=== PATIENT | female | born 1930 ===

== ENCOUNTER 2017-04-27 06:43 | Inpatient (IN) | payer OTHER, MEDICARE ==
[~2017-04-27] VITALS: Ht 152.4 cm; Wt 45.8 kg
[2017-04-27 06:51] VITALS: BP 136/63; PULSE 86; RESP 16; TEMP 98.2; O2SAT 98
[2017-04-27] MEDS ORDERED: CYPR4TAB PO (07:06)
[2017-04-27] MEDS ORDERED: METF500T PO (07:06)
[2017-04-27] MEDS ORDERED: ASPI81CH6 CHEW (07:12)
[2017-04-27] MEDS ORDERED: ALBU0.63 NEB (07:12)
[2017-04-27] MEDS ORDERED: LEVO.075 PO (07:12)
[2017-04-27] MEDS ORDERED: CENTCHW4 CHEW (07:12)
[2017-04-27] MEDS ORDERED: AMLO10TA2 PO (07:12)
[2017-04-27] MEDS ORDERED: CALC250T PO (07:12)
--- NOTE | 2017-04-27 07:27 | PD ---
HPI Chief Complaint: Abdominal Pain Time Seen by Provider: 07:06 Travel History International Travel<30 days: No Contact w/Intl Traveler<30days: No Traveled to known affect area: No History of Present Illness HPI This patient was sent to [facility] from the [facility] where she was evaluated with labs and CT abdomen and pelvis. She was sent here for ERCP. Patient was accepted by Drs. Espinal and Abner. Apparently the [facility] GI physician does not do ERCP according to the paperwork. So she was transferred here. She was found to have elevation of, bile duct with a density in the common bile duct suspicious for choledocholithiasis. Patient at this time is not having abdominal pain. She did have a temp of 101 but was influenza positive. She received Levaquin. This point her symptoms are mild. No alleviating factors. No exacerbating factors. Duration 2 days. PFSH Past Medical History ?: Not Social History Alcohol Use: No Tobacco Use: No Substance Use: No Allergies-Medications (Allergen,Severity, Reaction): Coded Allergies: codeine (Verified Allergy, Severe, Anaphylaxis, 04/27/17) morphine (Verified Allergy, Severe, Anaphylaxis, 04/27/17) Penicillins (Verified Allergy, Intermediate, Hives, 04/27/17) Reported Meds & Prescriptions Reported Meds & Active Scripts Active Reported Synthroid (Levothyroxine Sodium) 75 Mcg Tab 75 Mcg PO DAILY Amlodipine (Amlodipine Besylate) 10 Mg Tab 10 Mg PO DAILY Centrum (Multiple Vitamins W/ Minerals) 1 Chew 1 Tab CHEW DAILY Aspirin Low Dose (Aspirin) 81 Mg Chew 81 Mg CHEW DAILY Calcium Citrate 250 Mg Calcium Tab 250 Mg PO DAILY Albuterol Neb (Albuterol Sulfate) 0.63 Mg/3 Ml Neb 0.63 Mg NEB TID NEB PRN Metformin (Metformin HCl) 500 Mg Tab 500 Mg PO DAILY With a meal Cyproheptadine (Cyproheptadine HCl) 4 Mg Tab 4 Mg PO TID Review of Systems General / Constitutional: Positive: Fever Eyes: No: Visual changes HENT: No: Headaches Cardiovascular: No: Chest Pain or Discomfort Respiratory: No: Shortness of Breath Gastrointestinal: Positive: Abdominal Pain Genitourinary: No: Dysuria Musculoskeletal: No: Pain Skin: No Rash Neurologic: No: Weakness Psychiatric: No: Depression Endocrine: No: Polydipsia Hematologic/Lymphatic: No: Easy Bruising Physical Exam Narrative GENERAL: Pleasant elderly well-developed patient in no apparent distress. SKIN: Focused skin assessment reveals no rash and nodules. Skin is Warm and dry. HEAD: Atraumatic. Normocephalic. EYES: Pupils equal and round. Possibly a hint of scleral icterus. No injection or drainage. ENT: No nasal bleeding or discharge. Mucous membranes pink and moist. NECK: Trachea midline. No JVD. CARDIOVASCULAR: Regular rate and rhythm. No murmur appreciated. RESPIRATORY: No accessory muscle use. Clear to auscultation. Breath sounds equal bilaterally. GASTROINTESTINAL: Abdomen soft, non-tender, nondistended. Hepatic and splenic margins not palpable. MUSCULOSKELETAL: No obvious deformities. No clubbing. No cyanosis. No edema. NEUROLOGICAL: Awake and alert. No obvious cranial nerve deficits. Motor grossly within normal limits. Normal speech. PSYCHIATRIC: Appropriate mood and affect; insight and judgment reasonable . Data Data Last Documented VS Vital Signs Date Time Temp Pulse Resp B/P (MAP) Pulse Ox O2 Delivery O2 Flow Rate FiO2 04/27/17 06:51 98.2 86 16 136/63 (87) 98 MDM Medical Decision Making Medical Screen Exam Complete: Yes Emergency Medical Condition: Yes Medical Record Reviewed: Yes Differential Diagnosis Choledocholithiasis, cholecystitis, biliary colic Narrative Course I have reviewed the patient's electronic medical record. Reviewed the report Fish workup including lab studies and CT abdomen and pelvis. At this time patient is a soft benign nontender abdomen. She is not having pain. Vital signs are normal I placed a call to the hospitalist to discuss and we'll get her admitted Diagnosis Primary Impression: Choledocholithiasis Additional Impression: Influenza Admitting Information Admitting Physician Requests: Edmundo Mishra MD Apr 27, 2017 07:27
[2017-04-27] MEDS ORDERED: NALOXONE HCL 0.4 MG/ML AMP IV PUSH PRN (08:00)
[2017-04-27] MEDS ORDERED: ONDANSETRON HCL 4 MG/2 ML VIAL IVP PRN (08:00)
[2017-04-27] MEDS ORDERED: LACTULOSE SYRUP 20 GM/30 ML CUP PO PRN (08:00)
[2017-04-27] MEDS ORDERED: SENNOSIDES 8.6 MG TAB PO PRN (08:00)
[2017-04-27] MEDS ORDERED: BISACODYL 10 MG SUPP RECTAL PRN (08:00)
[2017-04-27] MEDS ORDERED: SODIUM CHLORIDE 0.9% FLUSH 10 ML FLUSH IV FLUSH PRN (08:00)
[2017-04-27] MEDS ORDERED: MAGNESIUM HYDROXIDE SUSP 30 ML CUP PO PRN (08:00)
[2017-04-27] MEDS: SODIUM CHLOR 0.9% 1000 ML INJ 1,000 ML IV SCH ×2 (08:58→21:46)
[2017-04-27] MEDS: SODIUM CHLORIDE 0.9% FLUSH 10 ML FLUSH IV FLUSH SCH ×2 (08:58→21:00)
--- NOTE | 2017-04-27 09:52 | PD.CONS ---
HPI History of Present Illness This is a 87 year old female reportedly sent from her [facility] to [facility]. SHe was then transferred to [facility] after imaging finding of density in CBD suspicious for choledocholithiasis, to have ERCP. SHe says she was sent to hospital b/c she was feeling sick, she was "sleeping too much." SHe admitted some epigastric pain in the last 2 days but none at this time. Denies n/v, diarrhea. Says she had EGD and Colonoscopy with DRGupta 6 months ago and both were normal. SHe says she had her gallbladder removed some years ago. Pt is limited historian. (Bina Williamson) PFSH Past Medical History noncontributory Past Surgical History cholecystectomy per pt (Bina Williamson) Coded Allergies: codeine (Verified Allergy, Severe, Anaphylaxis, 04/27/17) morphine (Verified Allergy, Severe, Anaphylaxis, 04/27/17) Penicillins (Verified Allergy, Intermediate, Hives, 04/27/17) Family History noncontributory Social History no etoh (Bina Williamson) Review of Systems Constitutional: COMPLAINS OF: Fever Ears, nose, mouth, throat: COMPLAINS OF: Hearing loss Gastrointestinal: DENIES: Abdominal pain, Diarrhea, Nausea, Vomiting Integumentary: DENIES: Jaundice otherwise noncontributory (Bina Williamson) GI Exam Vitals I&O Vital Signs Date Time Temp Pulse Resp B/P (MAP) Pulse Ox O2 Delivery O2 Flow Rate FiO2 04/27/17 06:51 98.2 86 16 136/63 (87) 98 Physical Examination HEENT: PERRL; normocephalic; atraumatic; no jaundice. [place] CHEST: CTA CARDIAC: RRR ABDOMEN: Soft, nondistended, nontender; no hepatosplenomegaly; bowel sounds are present in all four quadrants. EXTREMITIES: No clubbing, cyanosis, or edema. SKIN: Normal; no rash; no jaundice. FINISHER MAP AND CHART: lethargic (Bina Williamson) Assessment and Plan Plan ASSESSMENT 87 yo lady transferred from [facility] with imaging showing density CBD suspicious for choledocholithiasis. hx limited, pt had vague sx of feeling fatigued and sick, had abd pain but not painful now. labs are pending. plan for ERCP PLAN - ERCP - obtain consent - keep NPO - await labs - further recs to follow pt seen by myself and DR Chew and this note is written on her behalf (Bina Williamson) Plan Patient was seen and examined, agree with above Notes, patient has common bile duct suspicious for choledocholithiasis, elevated liver function test, found to have flu a, after discussion with the anesthesiologist Dr. Shields and with the patient we feel that waiting for another 24 hours before the ERCP is good idea to give her more Tamiflu which will bring her viral load as well as the flu down and we'll help her avoid respiratory distress, patient agree with the plan since she is not having any abdominal pain and no GI symptom at this point except mild elevation of the liver function tests will plan on doing that tomorrow thank you (Mauricio Chew MD) Bina Williamson Apr 27, 2017 09:52 Mauricio Chew MD Apr 27, 2017 16:47
[2017-04-27 11:16] VITALS: BP 117/59; PULSE 69; RESP 20; O2SAT 100
--- NOTE | 2017-04-27 11:16 | HHI.HP ---
HPI Service [facility] Primary Care Physician Unknown Admission Diagnosis choledocholithiasis,influenza Diagnoses: Travel History International Travel<30 Days: No Contact w/Intl Traveler <30 Da: No Traveled to Known Affected Are: No History of Present Illness Pt is a pleasant 87 yr old female w past medical history of asthma, hypertension, heart murmur, diabetes with a history of thyroidectomy although she doesn't know why she had it presented to [facility] with fevers and chills and was diagnosed with influenza A. In addition she was found to have elevated LFTs with an AST of 115 ALT of 57 and a lipase of 102. Patient had a CT of the abdomen which showed "dilated common bile duct measuring 1.3 cm in size. Increased density within the midportion of the common bile duct measuring 2.00.9 cm in size which may be a gallstone or sludge ball". Patient was transferred here to our emergency room for further evaluation by GI cosmetic sales consultant who accepted the patient. Patient denies any abdominal pain, nausea or vomiting. She tells me, the reason she went to [facility] was because of her fevers and chills. She was brought in by her nephew. She denies any sick contacts however she has been around "people". She has been coughing for more than a week. She also complains of some body aches. However, her fevers started yesterday. Otherwise, patient has no other complaints. Chest x-ray report also reviewed from [facility] which showed interstitial prominence which may represent pneumonitis or CHF or edema. Patient denies any prior history of CHF. She denies any lower extremity edema. She denies any active shortness of breath. She tells me she has good bladder and bowel movement function. Last BM was 2 days ago. She does not feel constipated. Review of Systems Except as stated in HPI: all other systems reviewed are Neg Past Family Social History Past Medical History asthma, hypertension, heart murmur, diabetes with a history of thyroidectomy although reason for thyroidectomy unknown to pt. Past Surgical History cholecystectomy per pt appendectomy and thyroidectomy Reported Medications Reported Meds & Active Scripts Active Reported Synthroid (Levothyroxine Sodium) 75 Mcg Tab 75 Mcg PO DAILY Amlodipine (Amlodipine Besylate) 10 Mg Tab 10 Mg PO DAILY Centrum (Multiple Vitamins W/ Minerals) 1 Chew 1 Tab CHEW DAILY Aspirin Low Dose (Aspirin) 81 Mg Chew 81 Mg CHEW DAILY Calcium Citrate 250 Mg Calcium Tab 250 Mg PO DAILY Albuterol Neb (Albuterol Sulfate) 0.63 Mg/3 Ml Neb 0.63 Mg NEB TID NEB PRN Metformin (Metformin HCl) 500 Mg Tab 500 Mg PO DAILY With a meal Cyproheptadine (Cyproheptadine HCl) 4 Mg Tab 4 Mg PO TID Allergies: Coded Allergies: codeine (Verified Allergy, Severe, Anaphylaxis, 04/27/17) morphine (Verified Allergy, Severe, Anaphylaxis, 04/27/17) Penicillins (Verified Allergy, Intermediate, Hives, 04/27/17) Family History mother had DM but of old age father of old age but medical hx unknown to pt Social History denies any smoking, alcohol or illegal drug use Physical Exam Vital Signs Vital Signs Date Time Temp Pulse Resp B/P (MAP) Pulse Ox O2 Delivery O2 Flow Rate FiO2 04/27/17 06:51 98.2 86 16 136/63 (87 98 Physical Exam GENERAL: elderly female, wearing mask, does have a dry cough, pleasant SKIN: No rashes, cool and dry HEAD: Atraumatic. Normocephalic. No temporal or scalp tenderness. EYES: Pupils equal round and reactive. Extraocular motions intact. ENT: Nose without drainage. Airway patent. NECK: Trachea midline. CARDIOVASCULAR: Regular rate and rhythm with very soft JUN RESPIRATORY: Clear to auscultation. Breath sounds equal bilaterally. No wheezes but faint crackles at base GASTROINTESTINAL: Abdomen soft, somewhat distended but non tender w no guarding or rebound, well healed mid line incision noted. no hpipps's sign MUSCULOSKELETAL: Extremities without edema. No calf tenderness. Negative Homans sign bilaterally. NEUROLOGICAL: Awake and alert. Motor and sensory grossly within normal limits. Five out of 5 muscle strength in all muscle groups. Normal speech. Imaging CT of the abdomen report (from [facility]) showed "dilated common bile duct measuring 1.3 cm in size. Increased density within the midportion of the common bile duct measuring 2.00.9 cm in size which may be a gallstone or sludge ball" Chest x-ray report also reviewed from [facility] which showed interstitial prominence which may represent pneumonitis or CHF or edema. Caprini VTE Risk Assessment Caprini VTE Risk Assessment: Mod/High Risk (score >= 2) Caprini Risk Assessment Model Point Value = 1 Point Value = 2 Point Value = 3 Point Value = 5 Age 41-60 Minor surgery BMI > 25 kg/m2 Swollen legs Varicose veins or History of unexplained or recurrent spontaneous Oral contraceptives or hormone replacement Sepsis (< 1 month) Serious lung disease, including pneumonia (< 1 month) Abnormal pulmonary function Acute myocardial infarction Congestive heart failure (< 1 month) History of inflammatory bowel disease Medical patient at bed rest Age 61-74 Arthroscopic surgery Major open surgery (> 45 min) Laparoscopic surgery (> 45 min) Malignancy Confined to bed (> 72 hours) Immobilizing plaster cast Central venous access Age >= 75 History of VTE Family history of VTE Factor V Leiden Prothrombin [id number] Lupus anticoagulant Anticardiolipin antibodies Elevated serum homocysteine Heparin-induced thrombocytopenia Other congenital or acquired thrombophilia Stroke (< 1 month) Elective arthroplasty Hip, pelvis, or leg fracture Acute spinal cord injury (< 1 month) Prophylaxis Regimen Total Risk Factor Score Risk Level Prophylaxis Regimen 0-1 Low Early ambulation 2 Moderate Order ONE of the following: *Sequential Compression Device (SCD) *Heparin 5000 units SQ BID 3-4 Higher Order ONE of the following medications: *Heparin 5000 units SQ TID *Enoxaparin/Lovenox 40 mg SQ daily (WT < 150 kg, CrCl > 30 mL/min) *Enoxaparin/Lovenox 30 mg SQ daily (WT < 150 kg, CrCl > 10-29 mL/min) *Enoxaparin/Lovenox 30 mg SQ BID (WT < 150 kg, CrCl > 30 mL/min) AND/OR *Sequential Compression Device (SCD) 5 or more Highest Order ONE of the following medications: *Heparin 5000 units SQ TID (Preferred with Epidurals) *Enoxaparin/Lovenox 40 mg SQ daily (WT < 150 kg, CrCl > 30 mL/min) *Enoxaparin/Lovenox 30 mg SQ daily (WT < 150 kg, CrCl > 10-29 mL/min) *Enoxaparin/Lovenox 30 mg SQ BID (WT < 150 kg, CrCl > 30 mL/min) AND *Sequential Compression Device (SCD) Assessment and Plan Assessment and Plan Mildly Elevated LFT's/Choledocholithiasis: GI accepted the transfer from [facility]. Make NPO for possible ERCP. Consult to GI in place. Monitor LFT's. IVFs NS @75 ml/hr. Mild leukocytosis: pt is influenza A positive. Will start her on tamiflu as fevers started yesterday and pt's symptoms worsened which prompted her to go to [facility]. Repeat chest x-ray in AM. Monitor CBC. WBC from her [facility] was 12.4. Mild anemia: Hemoglobin 10.6 hematocrit 30.7. Monitor HTN: stable. resume amlodipine and added vasotec prn DM: resume metformin. Monitor Cr levels. At [facility], creatinine was 0.79. will need heart healthy/ADA diet once diet resumed. Hypothyroidism: s/p thyroidectomy. resume synthroid. DVT proph: SCD. Pt may undergo procedure per GI, hold chemical DVT proph for now and resume post procedure. Code Status full Discussed Condition With patient and ER physician Emilee Whipple MD Apr 27, 2017 11:16
[2017-04-27] MEDS: DOCUSATE SODIUM 50 MG/SENNA 8.6 MG TAB PO SCH ×2 (11:18→21:00)
[2017-04-27] MEDS ORDERED: ACETAMINOPHEN 325 MG TAB PO PRN (11:30)
[2017-04-27] MEDS ORDERED: ENALAPRILAT 1.25 MG/ML VIAL IV PUSH PRN (11:30)
[2017-04-27] MEDS ORDERED: RESP: ALBUTEROL 2.5 MG/IPRATROPIUM 0.5 MG NEB (PRN) NEB (11:45)
[2017-04-27] MEDS ORDERED: BENZONATATE 100 MG CAP PO PRN (11:45)
--- NOTE | 2017-04-27 12:04 | RADRPT ---
EXAM DATE/TIME: 04/27/2017 11:52 [facility] COMPARISON: No previous studies available for comparison. INDICATIONS : Short of breath with cough and wheezing. MEDICAL HISTORY : None. SURGICAL HISTORY : None. ENCOUNTER: Initial ACUITY: 2 days PAIN SCORE: 0/10 LOCATION: Bilateral chest FINDINGS: The lungs are clear without infiltrate, nodule, or mass. There is no appreciable pleural effusion fo r technique. Heart and mediastinum are unremarkable. There are degenerative changes in the thoracic spine with mild osteopenia. Calcifications are seen in the right shoulder due to chronic tendinitis. IMPRESSION: No acute cardiopulmonary disease. Clem Rogers MD on April 27, 2017 at 12:00 Board Certified Radiologist. This report was verified electronically.
[2017-04-27] MEDS: OSELTAMIVIR PHOSPHATE 75 MG CAP PO SCH ×2 (14:19→21:45)
[2017-04-27 17:00] VITALS: BP 119/59; PULSE 73; RESP 18; TEMP 97.8; O2SAT 98
[2017-04-27 20:00] VITALS: PULSE 80
[2017-04-27 21:18] VITALS: BP 149/65; PULSE 83; RESP 18; TEMP 97.9; O2SAT 97
[2017-04-27 23:17] VITALS: BP 124/61; PULSE 81; RESP 18; TEMP 97.2; O2SAT 93
[2017-04-28] VITALS (9 sets, daily range): BP systolic 106–135; BP diastolic 55–64; PULSE 67–80; RESP 16–20; TEMP 97.5–98.2; O2SAT 93–97
[2017-04-28] MEDS: LEVOTHYROXINE SODIUM 75 MCG TAB PO SCH (05:28)
[2017-04-28 07:44] LABS: AUTOMATED NEUTROPHIL # 4.9 TH/MM3 (1.8-7.7); BASOPHIL # 0.1 TH/MM3 (0-0.2); BASOPHIL % 0.7 % (0.0-2.0); EOSINOPHIL # 0.2 TH/MM3 (0-0.4); EOSINOPHIL % 2.4 % (0.0-4.0); HEMATOCRIT 27.2 % (35.0-46.0); HEMOGLOBIN 9.3 GM/DL (11.6-15.3); LYMPH % 26.5 % (9.0-44.0); LYMPHOCYTE # 2.1 TH/MM3 (1.0-4.8); MEAN CELL VOLUME 90.9 FL (80.0-100.0); MEAN CORPUSCULAR HGB CONC 34.2 % (32.0-36.0); MEAN PLATELET VOLUME 8.8 FL (7.0-11.0); MONO % 8.1 % (0.0-8.0); MONOCYTE # 0.6 TH/MM3 (0-0.9); NEUT % 62.3 % (16.0-70.0); PLATELET COUNT 338 TH/MM3 (150-450); RED BLOOD COUNT 2.99 MIL/MM3 (4.00-5.30); RED CELL DISTRIBUTION WIDTH 18.3 % (11.6-17.2); WHITE BLOOD COUNT 7.9 TH/MM3 (4.0-11.0)
--- NOTE | 2017-04-28 08:11 | HHI.PR ---
Subjective Remarks This is a pleasant 87 y/o Female with Asthma, Hypertension, Dm II, Thyroidectomy , Who presented to [facility] with fevers and chills and was diagnosed with influenza A. In addition she was found to have elevated LFTs with an AST of 115 ALT of 57 and a lipase of 102. Patient had a CT of the abdomen which showed "dilated common bile duct measuring 1.3 cm in size. Increased density within the midportion of the common bile duct measuring 2.00.9 cm in size which may be a gallstone or sludge ball". Patient was transferred here to our emergency room for further evaluation by GI conveyor tender who accepted the patient. She was brought in by her nephew. Chest x-ray report also reviewed from [facility] which showed interstitial prominence which may represent pneumonitis or CHF or edema. 04/28: Seen in her bedroom early in am, awaiting for ERCP, she came back to her bedroom status post ERCP, found Dilated common bile duct with multiple filling defects multiple stones were removed with significant amount of sludge, Cholangiogram negative for filing defect, recommended Nothing by mouth until tomorrow morning if doing okay may advance diet as tolerated. Liver function in am tomorrow. at this time no nausea, vomit or diarrhea. Objective Vital Signs Date Time Temp Pulse Resp B/P (MAP) Pulse Ox O2 Delivery O2 Flow Rate FiO2 04/28/17 05:14 98.1 79 18 131/64 (86) 93 04/28/17 04:00 73 04/28/17 00:00 80 04/27/17 23:17 97.2 81 18 124/61 (82) 93 04/27/17 21:18 97.9 83 18 149/65 (93) 97 04/27/17 20:00 80 04/27/17 20:00 Room Air 04/27/17 17:00 97.8 73 18 119/59 (79) 98 04/27/17 15:46 04/27/17 15:43 98.0 72 17 133/60 (84) 98 04/27/17 15:43 98.0 72 17 133/60 (84) 98 Room Air 04/27/17 11:16 69 20 117/59 (78) 100 I/O 04/27/17 04/27/17 04/27/17 04/28/17 04/28/17 04/28/17 07:00 15:00 23:00 07:00 15:00 23:00 Intake Total 750 ml 240 ml Output Total 1200 ml Balance 750 ml -960 ml Intake Oral 150 ml 240 ml IV Total 600 ml Output Urine Total 1200 ml # Bowel Movements 2 Result Diagram: 04/28/[address] of the abdomen report (from [facility]) showed "dilated common bile duct measuring 1.3 cm in size. Increased density within the midportion of the common bile duct measuring 2.00.9 cm in size which may be a gallstone or sludge ball" Chest x-ray report also reviewed from [facility] which showed interstitial prominence which may represent pneumonitis or CHF or edema. Procedures ERCP 04/28 Other Results Laboratory Tests Test 04/28/17 05:55 White Blood Count 7.9 TH/MM3 Red Blood Count 2.99 MIL/MM3 Hemoglobin 9.3 GM/DL Hematocrit 27.2 % Mean Corpuscular Volume 90.9 FL Mean Corpuscular Hemoglobin 31.0 PG Mean Corpuscular Hemoglobin Concent 34.2 % Red Cell Distribution Width 18.3 % Platelet Count 338 TH/MM3 Mean Platelet Volume 8.8 FL Neutrophils (%) (Auto) 62.3 % Lymphocytes (%) (Auto) 26.5 % Monocytes (%) (Auto) 8.1 % Eosinophils (%) (Auto) 2.4 % Basophils (%) (Auto) 0.7 % Neutrophils # (Auto) 4.9 TH/MM3 Lymphocytes # (Auto) 2.1 TH/MM3 Monocytes # (Auto) 0.6 TH/MM3 Eosinophils # (Auto) 0.2 TH/MM3 Basophils # (Auto) 0.1 TH/MM3 CBC Comment DIFF FINAL Differential Comment Objective Remarks GENERAL: No acute distress. SKIN: No rashes, cool and dry HEAD: Atraumatic. Normocephalic. No temporal or scalp tenderness. EYES: Pupils equal round and reactive. Extraocular motions intact. ENT: Nose without drainage. Airway patent. NECK: Trachea midline. CARDIOVASCULAR: Regular rate and rhythm with very soft JUN RESPIRATORY: Clear to auscultation. Breath sounds equal bilaterally. No wheezes but faint crackles at base GASTROINTESTINAL: Abdomen soft, somewhat distended but non tender w no guarding or rebound, well healed mid line incision noted. no phipps's sign MUSCULOSKELETAL: Extremities without edema. No calf tenderness. Negative Homans sign bilaterally. NEUROLOGICAL: Awake and alert. Motor and sensory grossly within normal limits. Five out of 5 muscle strength in all muscle groups. Normal speech. Medications and IVs Current Medications Medications (Trade) Dose Ordered Sig/Son Route Start Time Stop Time Status Last Admin Sodium Chloride 1,000 ml @ 75 mls/hr [id number] IV 04/27/17 07:51 04/27/17 21:46 (NS Flush) 2 ml UNSCH PRN IV FLUSH 04/27/17 08:00 (NS Flush) 2 ml BID IV FLUSH 04/27/17 09:00 04/27/17 08:58 (Zofran Inj) 4 mg Q6H PRN IVP 04/27/17 08:00 (Narcan Inj) 0.4 mg UNSCH PRN IV PUSH 04/27/17 08:00 (Annette-Colace) 1 tab BID PO 04/27/17 09:00 04/27/17 11:18 (Milk Of Magnesia Liq) 30 ml Q12H PRN PO 04/27/17 08:00 (Senokot) 17.2 mg Q12H PRN PO 04/27/17 08:00 (Dulcolax Supp) 10 mg DAILY PRN RECTAL 04/27/17 08:00 (Lactulose Liq) 30 ml DAILY PRN PO 04/27/17 08:00 (Tamiflu) 75 mg BID PO 04/27/17 12:00 04/27/17 21:45 (Norvasc) 10 mg DAILY PO 04/28/17 09:00 (Aspirin Chew) 81 mg DAILY CHEW 04/28/17 09:00 (Synthroid) 75 mcg DAILY@0600 PO 04/28/17 06:00 04/28/17 05:28 (Glucophage) 500 mg DAILY PO 04/28/17 09:00 (Vasotec Inj) 1.25 mg Q6H PRN IV PUSH 04/27/17 11:30 (Tylenol) 650 mg Q6HR PRN PO 04/27/17 11:30 (Duoneb Neb) 1 ampule Q6HR NEB PRN NEB 04/27/17 11:45 (Tessalon) 200 mg TID PRN PO 04/27/17 11:45 A/P Assessment and Plan Mildly Elevated LFT's/Choledocholithiasis: GI accepted the transfer from [facility]. Status post ERCP multiple stones removed and recommended to keep the patient NPO until tomorrow. Mild leukocytosis: pt is influenza A positive. Will start her on Tamiflu as fevers started yesterday and pt's symptoms worsened which prompted her to go to [facility]. new CXR negative Leukocytosis Improved. Mild anemia: Hemoglobin 10.6 hematocrit 30.7. Monitor HTN: controlled. DM: On hold metformin and continue sliding scale. developed hypoglycemia in am started on D5 Normal saline and following. Hypothyroidism: s/p thyroidectomy. resume Hormonal replacement. DVT proph: SCD. Pt may undergo procedure per GI, hold chemical DVT proph for now and resume post procedure. Code Status full Code. Discussed Condition With Patient and nurse Miss Berumen. Discharge Planning Once cleared by GI specialist. Jackson Griffin MD Apr 28, 2017 08:10
[2017-04-28] MEDS: DOCUSATE SODIUM 50 MG/SENNA 8.6 MG TAB PO SCH ×2 (08:50→21:00)
[2017-04-28] MEDS: SODIUM CHLORIDE 0.9% FLUSH 10 ML FLUSH IV FLUSH SCH ×2 (08:53→21:00)
[2017-04-28] MEDS: OSELTAMIVIR PHOSPHATE 75 MG CAP PO SCH ×2 (08:53→21:14)
[2017-04-28] MEDS: ASPIRIN 81 MG CHEW TAB CHEW SCH (08:53)
[2017-04-28 08:54] LABS: BICARBONATE 24.1 MEQ/L (21.0-32.0); BLOOD UREA NITROGEN 9 MG/DL (7-18); CALCIUM 8.3 MG/DL (8.5-10.1); CHLORIDE 109 MEQ/L (98-107); CREATININE 0.58 MG/DL (0.50-1.00); GLOMERULAR FILTRATION RATE 98 ML/MIN (>89); GLUCOSE,RANDOM 61 MG/DL (74-106); SODIUM (NA) 142 MEQ/L (136-145)
[2017-04-28] MEDS: DEXT 5%-NACL 0.9% 1000 ML INJ 1,000 ML IV SCH ×2 (08:54→18:30)
[2017-04-28 08:55] LABS: AST (GOT) 61 U/L (15-37)
[2017-04-28 08:58] LABS: ALKALINE PHOSPHATASE 490 U/L (45-117); ALT (GPT) 39 U/L (10-53); TOTAL BILIRUBIN ADULT 1.3 MG/DL (0.2-1.0); TOTAL PROTEIN 6.9 GM/DL (6.4-8.2)
[2017-04-28] MEDS ORDERED: metFORMIN HCL 500 MG TAB PO SCH (09:00)
[2017-04-28] MEDS ORDERED: PROPOFOL 200 MG/20 ML AMP IV ONE (12:00)
[2017-04-28] MEDS ORDERED: LIDOCAINE HCL 1% PF 5 ML SYRINGE OTHER ONE (12:00)
[2017-04-28] MEDS ORDERED: IOHEXOL 350 MG/ML 50 ML BTL (for RAD DIAG) OTHER ONE (12:24)
[2017-04-28] MEDS ORDERED: DO NOT ADM ANY ANTICOAGULANT DRUGS PRN (12:42)
--- NOTE | 2017-04-28 13:12 | PD.PROCEDR ---
GI Procedure PROCEDURE PERFORMED [] INDICATION FOR PROCEDURE [] PROCEDURE: The procedure, risks and benefits were discussed with Ms. Prieto and informed consent was obtained. Anesthesia sedated her with Diprivan. She was placed in the left lateral decubitus position. ERCP: Patient was placed in a prone position. The Pentax videoscope was introduced through the oropharynx and advanced to the second portion of the duodenum where the ampula was identified. Cannulation was achieved without any difficulty, cholangiogram was performed which shows significant filling defects and significant dilation of the common bile duct, sphincterotomy was performed, sweeping the duct with balloon size 50 mm revealed multiple stones and significant amount of sludge, the duct was flushed with normal saline to get rid of the sludge, end of case included cholangiogram was negative for any filling defect ESTIMATED BLOOD LOSS: None SPECIMENS REMOVED: None COMPLICATIONS: None IMPRESSION: Dilated common bile duct with multiple filling defect Multiple stones were removed with significant amount of sludge End of case included cholangiogram was negative for any filling defect PLAN: Nothing by mouth until tomorrow morning if doing okay may advance diet as tolerated Liver function test tomorrow Mauricio Chew MD Apr 28, 2017 13:12
--- NOTE | 2017-04-28 13:14 | HHI.GIFU ---
Subjective Remarks Patient is laying in bed comfortably, deny any significant problem, no abdominal pain today, mild shortness of breath Objective Vitals I&O Vital Signs Date Time Temp Pulse Resp B/P (MAP) Pulse Ox O2 Delivery O2 Flow Rate FiO2 04/28/17 12:48 97.6 80 16 137/72 (93) 95 04/28/17 12:00 98.2 72 18 106/55 (72) 95 04/28/17 08:00 97.5 70 20 135/63 (87) 93 04/28/17 08:00 67 04/28/17 05:14 98.1 79 18 131/64 (86) 93 04/28/17 04:00 73 04/28/17 00:00 80 04/27/17 23:17 97.2 81 18 124/61 (82) 93 04/27/17 21:18 97.9 83 18 149/65 (93) 97 04/27/17 20:00 80 04/27/17 20:00 Room Air 04/27/17 17:00 97.8 73 18 119/59 (79) 98 04/27/17 15:46 04/27/17 15:43 98.0 72 17 133/60 (84) 98 04/27/17 15:43 98.0 72 17 133/60 (84) 98 Room Air I/O 04/27/17 04/27/17 04/27/17 04/28/17 04/28/17 04/28/17 07:00 15:00 23:00 07:00 15:00 23:00 Intake Total 750 ml 240 ml 400 ml Output Total 1200 ml Balance 750 ml -960 ml 400 ml Intake Oral 150 ml 240 ml IV Total 600 ml Other 400 ml Output Urine Total 1200 ml # Bowel Movements 2 Laboratory Laboratory Tests Test 04/28/17 05:55 White Blood Count 7.9 Red Blood Count 2.99 Hemoglobin 9.3 Hematocrit 27.2 Mean Corpuscular Volume 90.9 Mean Corpuscular Hemoglobin 31.0 Mean Corpuscular Hemoglobin Concent 34.2 Red Cell Distribution Width 18.3 Platelet Count 338 Mean Platelet Volume 8.8 Neutrophils (%) (Auto) 62.3 Lymphocytes (%) (Auto) 26.5 Monocytes (%) (Auto) 8.1 Eosinophils (%) (Auto) 2.4 Basophils (%) (Auto) 0.7 Neutrophils # (Auto) 4.9 Lymphocytes # (Auto) 2.1 Monocytes # (Auto) 0.6 Eosinophils # (Auto) 0.2 Basophils # (Auto) 0.1 CBC Comment DIFF FINAL Differential Comment Blood Urea Nitrogen 9 Creatinine 0.58 Random Glucose 61 Total Protein 6.9 Albumin 2.0 Calcium Level 8.3 Alkaline Phosphatase 490 Aspartate Amino Transf (AST/SGOT) 61 Alanine Aminotransferase (ALT/SGPT) 39 Total Bilirubin 1.3 Sodium Level 142 Potassium Level 3.4 Chloride Level 109 Carbon Dioxide Level 24.1 Anion Gap 9 Estimat Glomerular Filtration Rate 98 Physical Exam HEENT: Pupils round and reactive to light; normocephalic; atraumatic; no jaundice. Throat is clear. NECK: Neck is supple, no JVD, no lymphadenopathy. CHEST: Chest is clear to auscultation and percussion. CARDIAC: Regular rate and rhythm with no murmur gallop or rubs. ABDOMEN: Soft, nondistended, nontender; no hepatosplenomegaly; bowel sounds are present in all four quadrants. EXTREMITIES: No clubbing, cyanosis, or edema. SKIN: Normal; no rash; no jaundice. INTERNSHIP COORDINATOR: No focal deficits; alert and oriented times three. Assessment and Plan Plan Patient was seen and examined, agree with above Notes, patient has common bile duct suspicious for choledocholithiasis, elevated liver function test, found to have flu a, after discussion with the anesthesiologist Dr. Shields and with the patient we feel that waiting for another 24 hours before the ERCP is good idea to give her more Tamiflu which will bring her viral load as well as the flu down and we'll help her avoid respiratory distress, patient agree with the plan since she is not having any abdominal pain and no GI symptom at this point except mild elevation of the liver function tests will plan on doing that tomorrow thank you 04/28/2017, patient is doing better today, however she has flu a and was started on Tamiflu, Common bile duct stone on CT scan with elevated liver function tests which improved today, she had ERCP today IMPRESSION: Dilated common bile duct with multiple filling defect Multiple stones were removed with significant amount of sludge End of case included cholangiogram was negative for any filling defect PLAN: Nothing by mouth until tomorrow morning if doing okay may advance diet as tolerated Liver function test tomorrow Mauricio Chew MD Apr 28, 2017 13:14
--- NOTE | 2017-04-28 13:52 | RADRPT ---
EXAM DATE/TIME: 04/28/2017 12:37 [place] COMPARISON: CHEST PA & LAT, April 27, 2017, 11:52. INDICATIONS : Stones with obstruction. FLUORO TIME: 3.33 minutes IMAGE COUNT: 3 CONTRAST: Instilled by Ordering Physician MEDICAL HISTORY : Stones SURGICAL HISTORY : None. ENCOUNTER: Initial ACUITY: 2 days PAIN SCORE: Non-responsive. LOCATION: Abdomen FINDINGS: ERCP imaging demonstrates a significantly dilated common bile duct. The images provided demonstrate e ither sludge or stone in the upper portion of the duct. Subsequent imaging demonstrates the duct to b e clear. CONCLUSION: ERCP as above. Ramírez Garza MD on April 28, 2017 at 13:49 Board Certified Radiologist. This report was verified electronically.
[2017-04-28] MEDS ORDERED: GLUCAGON 1 MG/ML VIAL OTHER PRN (15:15)
[2017-04-28] MEDS ORDERED: DEXTROSE 50% IN WATER 50 ML VIAL(D50) IV PUSH PRN (15:15)
[2017-04-28] MEDS: INSULIN ASPART SUPPLEMENTAL SCALE SQ SCH ×2 (17:00→21:00)
[2017-04-29] VITALS (12 sets, daily range): BP systolic 116–138; BP diastolic 61–78; PULSE 62–80; RESP 16–18; TEMP 97.3–98.2; O2SAT 96–100
[2017-04-29] MEDS: DEXT 5%-NACL 0.9% 1000 ML INJ 1,000 ML IV SCH ×2 (01:26→19:15)
[2017-04-29] MEDS: LEVOTHYROXINE SODIUM 75 MCG TAB PO SCH (05:18)
[2017-04-29] MEDS: INSULIN ASPART SUPPLEMENTAL SCALE SQ SCH ×4 (08:00→21:03)
--- NOTE | 2017-04-29 08:05 | HHI.PR ---
Subjective Remarks This is a pleasant 87 y/o Female with Asthma, Hypertension, Dm II, Thyroidectomy , Who presented to [facility] with fevers and chills and was diagnosed with influenza A. In addition she was found to have elevated LFTs with an AST of 115 ALT of 57 and a lipase of 102. Patient had a CT of the abdomen which showed "dilated common bile duct measuring 1.3 cm in size. Increased density within the midportion of the common bile duct measuring 2.00.9 cm in size which may be a gallstone or sludge ball". Patient was transferred here to our emergency room for further evaluation by GI it applications developer who accepted the patient. She was brought in by her nephew. Chest x-ray report also reviewed from [facility] which showed interstitial prominence which may represent pneumonitis or CHF or edema. 04/28: Seen in her bedroom early in am, awaiting for ERCP, she came back to her bedroom status post ERCP, found Dilated common bile duct with multiple filling defects multiple stones were removed with significant amount of sludge, Cholangiogram negative for filing defect, recommended Nothing by mouth until tomorrow morning if doing okay may advance diet as tolerated. Liver function in am tomorrow. 04/29: Stable in her bedroom, followed by GI specialist, status post ERCP, advance diet to full liquids today, if tolerates mild at a heart healthy soft in am tomorrow and LFTs today, not yet cleared for discharge by GI, No nausea, vomit or diarrhea. Objective Vital Signs Date Time Temp Pulse Resp B/P (MAP) Pulse Ox O2 Delivery O2 Flow Rate FiO2 04/29/17 04:12 97.4 69 16 116/63 (80) 97 04/29/17 04:00 62 04/29/17 00:20 98.2 75 16 138/66 (90) 96 04/29/17 00:00 67 04/28/17 20:00 Room Air 04/28/17 20:00 73 04/28/17 19:58 98.1 72 16 125/57 (79) 97 04/28/17 16:08 77 04/28/17 16:00 97.8 77 18 133/64 (87) 94 04/28/17 16:00 Room Air 04/28/17 12:48 97.6 80 16 137/72 (93) 95 1/26/18 12:00 98.2 72 18 106/55 (72) 95 04/28/17 12:00 Room Air I/O 04/28/17 04/28/17 04/28/17 04/29/17 04/29/17 04/29/17 07:00 15:00 23:00 07:00 15:00 23:00 Intake Total 240 ml 400 ml 1000 ml Output Total 1200 ml 1000 ml 1200 ml Balance -960 ml 400 ml -1000 ml -200 ml Intake Oral 240 ml 0 ml IV Total 1000 ml Other 400 ml Output Urine Total 1200 ml 1000 ml 1200 ml # Bowel Movements 2 0 Result Diagram: 04/28/17 0555 04/28/17 0555 Imaging Last Impressions GI Procedure 04/28/17 0000 Signed Impressions: Service Date/Time: Friday, April 28, 2017 12:37 - CONCLUSION: ERCP as above. Ramírez Garza MD Procedures ERCP 04/28 Other Results Laboratory Tests Test 04/28/17 05:55 White Blood Count 7.9 TH/MM3 Red Blood Count 2.99 MIL/MM3 Hemoglobin 9.3 GM/DL Hematocrit 27.2 % Mean Corpuscular Volume 90.9 FL Mean Corpuscular Hemoglobin 31.0 PG Mean Corpuscular Hemoglobin Concent 34.2 % Red Cell Distribution Width 18.3 % Platelet Count 338 TH/MM3 Mean Platelet Volume 8.8 FL Neutrophils (%) (Auto) 62.3 % Lymphocytes (%) (Auto) 26.5 % Monocytes (%) (Auto) 8.1 % Eosinophils (%) (Auto) 2.4 % Basophils (%) (Auto) 0.7 % Neutrophils # (Auto) 4.9 TH/MM3 Lymphocytes # (Auto) 2.1 TH/MM3 Monocytes # (Auto) 0.6 TH/MM3 Eosinophils # (Auto) 0.2 TH/MM3 Basophils # (Auto) 0.1 TH/MM3 CBC Comment DIFF FINAL Differential Comment Blood Urea Nitrogen 9 MG/DL Creatinine 0.58 MG/DL Random Glucose 61 MG/DL Total Protein 6.9 GM/DL Albumin 2.0 GM/DL Calcium Level 8.3 MG/DL Alkaline Phosphatase 490 U/L Aspartate Amino Transf (AST/SGOT) 61 U/L Alanine Aminotransferase (ALT/SGPT) 39 U/L Total Bilirubin 1.3 MG/DL Sodium Level 142 MEQ/L Potassium Level 3.4 MEQ/L Chloride Level 109 MEQ/L Carbon Dioxide Level 24.1 MEQ/L Anion Gap 9 MEQ/L Estimat Glomerular Filtration Rate 98 ML/MIN Objective Remarks GENERAL: No acute distress. SKIN: No rashes, cool and dry HEAD: Atraumatic. Normocephalic. No temporal or scalp tenderness. EYES: Pupils equal round and reactive. Extraocular motions intact. ENT: Nose without drainage. Airway patent. NECK: Trachea midline. CARDIOVASCULAR: Regular rate and rhythm with very soft JUN RESPIRATORY: Clear to auscultation. Breath sounds equal bilaterally. No wheezes but faint crackles at base GASTROINTESTINAL: Abdomen soft, somewhat distended but non tender w no guarding or rebound, well healed mid line incision noted. no phipps's sign MUSCULOSKELETAL: Extremities without edema. No calf tenderness. Negative Homans sign bilaterally. NEUROLOGICAL: Awake and alert. Motor and sensory grossly within normal limits. Five out of 5 muscle strength in all muscle groups. Normal speech. Medications and IVs Current Medications Medications (Trade) Dose Ordered Sig/Son Route Start Time Stop Time Status Last Admin (NS Flush) 2 ml UNSCH PRN IV FLUSH 04/27/17 08:00 (NS Flush) 2 ml BID IV FLUSH 04/27/17 09:00 04/27/17 08:58 (Zofran Inj) 4 mg Q6H PRN IVP 04/27/17 08:00 (Narcan Inj) 0.4 mg UNSCH PRN IV PUSH 04/27/17 08:00 (Annette-Colace) 1 tab BID PO 04/27/17 09:00 04/27/17 11:18 (Milk Of Magnesia Liq) 30 ml Q12H PRN PO 04/27/17 08:00 (Senokot) 17.2 mg Q12H PRN PO 04/27/17 08:00 (Dulcolax Supp) 10 mg DAILY PRN RECTAL 04/27/17 08:00 (Lactulose Liq) 30 ml DAILY PRN PO 04/27/17 08:00 (Tamiflu) 75 mg BID PO 04/27/17 12:00 04/28/17 21:14 (Norvasc) 10 mg DAILY PO 04/28/17 09:00 04/28/17 08:53 (Aspirin Chew) 81 mg DAILY CHEW 04/28/17 09:00 04/28/17 08:53 (Synthroid) 75 mcg DAILY@0600 PO 04/28/17 06:00 04/29/17 05:18 (Vasotec Inj) 1.25 mg Q6H PRN IV PUSH 04/27/17 11:30 (Tylenol) 650 mg Q6HR PRN PO 04/27/17 11:30 (Duoneb Neb) 1 ampule Q6HR NEB PRN NEB 04/27/17 11:45 (Tessalon) 200 mg TID PRN PO 04/27/17 11:45 Dextrose/Sodium Chloride 1,000 ml @ 100 mls/hr Q10H IV 04/28/17 08:30 04/29/17 01:26 Miscellaneous Information ALL NURSING DEPARTME... UNSCH PRN .XX 04/28/17 12:42 04/29/17 12:41 (NovoLOG SUPPLEMENTAL SCALE) 1 ACHS SLIDING SCALE SQ 04/28/17 17:00 (D50w (Vial) Inj) 50 ml UNSCH PRN IV PUSH 04/28/17 15:15 (Glucagon Inj) 1 mg UNSCH PRN OTHER 04/28/17 15:15 A/P Assessment and Plan Mildly Elevated LFT's/Choledocholithiasis: GI accepted the transfer from [facility]. Status post ERCP multiple stones removed advance diet to full liquids today, if tolerates mild at a heart healthy soft in am tomorrow, and LFTs today, not yet cleared for discharge by GI. Mild leukocytosis: pt is influenza A positive. Will start her on Tamiflu as fevers started yesterday and pt's symptoms worsened which prompted her to go to [facility]. new CXR negative Leukocytosis Improved. Mild anemia: Hemoglobin 10.6 hematocrit 30.7. Monitor HTN: controlled. DM: On hold metformin and continue sliding scale. developed hypoglycemia in am started on D5 Normal saline and following. Hypothyroidism: s/p thyroidectomy. resume Hormonal replacement. DVT proph: SCD. Pt may undergo procedure per GI, hold chemical DVT proph for now and resume post procedure. Code Status full Code. Discussed Condition With Patient and nurse Miss Hernandez Discharge Planning Once cleared by GI specialist. Jackson Griffin MD Apr 29, 2017 08:04
[2017-04-29] MEDS: SODIUM CHLORIDE 0.9% FLUSH 10 ML FLUSH IV FLUSH SCH ×2 (09:00→21:02)
[2017-04-29] MEDS: DOCUSATE SODIUM 50 MG/SENNA 8.6 MG TAB PO SCH ×2 (09:21→21:02)
[2017-04-29] MEDS: OSELTAMIVIR PHOSPHATE 75 MG CAP PO SCH ×2 (09:21→21:02)
[2017-04-29] MEDS: ASPIRIN 81 MG CHEW TAB CHEW SCH (09:21)
[2017-04-29] MEDS: RESP: ALBUTEROL 2.5 MG/IPRATROPIUM 0.5 MG NEB (SCH) NEB ×3 (12:06→21:21)
[2017-04-29] MEDS: guaiFENesin E.R. 600 MG TAB PO SCH ×2 (13:06→21:03)
--- NOTE | 2017-04-29 13:18 | HHI.GIFU ---
Subjective Remarks Resting in the bed Denies any nausea ,vomiting, abdominal pain Diet advanced to full liquids today No active bleeding hemoglobin stable at 9.3 Afebrile (Mary Zavala) Objective Vitals I&O Vital Signs Date Time Temp Pulse Resp B/P (MAP) Pulse Ox O2 Delivery O2 Flow Rate FiO2 04/29/17 12:00 97.3 68 18 124/61 (82) 100 04/29/17 08:00 98.1 66 18 126/78 (94) 97 04/29/17 08:00 64 04/29/17 04:12 97.4 69 16 116/63 (80) 97 04/29/17 04:00 62 04/29/17 00:20 98.2 75 16 138/66 (90) 96 04/29/17 00:00 67 04/28/17 20:00 Room Air 04/28/17 20:00 73 04/28/17 19:58 98.1 72 16 125/57 (79) 97 04/28/17 16:08 77 04/28/17 16:00 97.8 77 18 133/64 (87) 94 04/28/17 16:00 Room Air I/O 04/28/17 04/28/17 04/28/17 04/29/17 04/29/17 04/29/17 07:00 15:00 23:00 07:00 15:00 23:00 Intake Total 240 ml 400 ml 1000 ml Output Total 1200 ml 1000 ml 1200 ml Balance -960 ml 400 ml -1000 ml -200 ml Intake Oral 240 ml 0 ml IV Total 1000 ml Other 400 ml Output Urine Total 1200 ml 1000 ml 1200 ml # Bowel Movements 2 0 Imaging Last Impressions GI Procedure 04/28/17 0000 Signed Impressions: Service Date/Time: Friday, April 28, 2017 12:37 - CONCLUSION: ERCP as above. Ramírez Garza MD Physical Exam HEENT: Pupils round and reactive to light; normocephalic; atraumatic; no jaundice. Cavity clean. NECK: Neck is supple CHEST: Chest is clear out rhonchi CARDIAC: Regular rate and rhythm ABDOMEN: Soft, nondistended, nontender; no hepatosplenomegaly; bowel sounds are present in all four quadrants. EXTREMITIES: No edema. SKIN: Normal; no rash; no jaundice. STEAMTABLE ATTENDANT RAILROAD: Comfortable , answers questions briefly but appropriately (Mary Zavala) Assessment and Plan Plan ERCP 04/28/17 Dilated common bile duct with multiple filling defect Multiple stones were removed with significant amount of sludge End of case included cholangiogram was negative for any filling defect Anemia, hemoglobin stable at 9.3 04/29/17 No nausea vomiting or abdominal pain, abdomen soft active bowel sounds Per attending patient is continuing Tamiflu twice a day PLAN: advance diet to full liquids today, if patient tolerates milk at a heart healthy soft in the morning LFTs today Monitor labs with special attention to hemoglobin as well as LFTs Call for any acute GI bleeding or acute abdominal pain Supportive care Bowel regimen with stool softeners and laxatives as needed Patient was seen by myself and Dr. Chew, note was written on his behalf (Mary Zavala) Plan Patient was seen and examined, agree with above-noted, she is doing well no abdominal pain, we will check blood count and liver function test if normal and stable she can be discharged from GI standpoint, she will need a colonoscopy as an outpatient (Mauricio Chew MD) Mary Zavala Apr 29, 2017 13:18 Mauricio Chew MD Apr 29, 2017 20:12
[2017-04-30] VITALS: BP 126/71; PULSE 77; RESP 16; TEMP 97.6; O2SAT 99
[2017-04-30] MEDS: DEXT 5%-NACL 0.9% 1000 ML INJ 1,000 ML IV SCH ×2 (00:30→05:22)
[2017-04-30] MEDS: RESP: ALBUTEROL 2.5 MG/IPRATROPIUM 0.5 MG NEB (SCH) NEB ×5 (03:23→15:42)
[2017-04-30 03:42] VITALS: PULSE 68
[2017-04-30 04:00] LABS: AUTOMATED NEUTROPHIL # 4.7 TH/MM3 (1.8-7.7); BASOPHIL # 0.1 TH/MM3 (0-0.2); BASOPHIL % 0.9 % (0.0-2.0); EOSINOPHIL # 0.2 TH/MM3 (0-0.4); EOSINOPHIL % 2.3 % (0.0-4.0); HEMATOCRIT 27.2 % (35.0-46.0); HEMOGLOBIN 9.7 GM/DL (11.6-15.3); LYMPH % 30.2 % (9.0-44.0); LYMPHOCYTE # 2.3 TH/MM3 (1.0-4.8); MEAN CELL VOLUME 90.5 FL (80.0-100.0); MEAN CORPUSCULAR HEMOGLOBIN 32.2 PG (27.0-34.0); MEAN CORPUSCULAR HGB CONC 35.6 % (32.0-36.0); MEAN PLATELET VOLUME 8.4 FL (7.0-11.0); MONO % 5.3 % (0.0-8.0); MONOCYTE # 0.4 TH/MM3 (0-0.9); NEUT % 61.3 % (16.0-70.0); PLATELET COUNT 350 TH/MM3 (150-450); RED BLOOD COUNT 3.01 MIL/MM3 (4.00-5.30); RED CELL DISTRIBUTION WIDTH 18.9 % (11.6-17.2); WHITE BLOOD COUNT 7.7 TH/MM3 (4.0-11.0)
[2017-04-30 04:31] LABS: ALBUMIN 2.1 GM/DL (3.4-5.0); DIRECT BILIRUBIN ADULT 0.7 MG/DL (0.0-0.2)
[2017-04-30 04:33] LABS: INDIRECT BILIRUBIN 0.2 MG/DL (0.0-0.8); TOTAL BILIRUBIN ADULT 0.9 MG/DL (0.2-1.0); TOTAL PROTEIN 7.3 GM/DL (6.4-8.2)
[2017-04-30] MEDS: LEVOTHYROXINE SODIUM 75 MCG TAB PO SCH (05:22)
[2017-04-30 08:00] VITALS: BP 120/67; PULSE 76; PULSE 77; RESP 18; TEMP 98.1; O2SAT 95
[2017-04-30] MEDS: INSULIN ASPART SUPPLEMENTAL SCALE SQ SCH ×2 (08:00→12:00)
--- NOTE | 2017-04-30 08:47 | HHI.PR ---
Subjective Remarks This is a pleasant 87 y/o Female with Asthma, Hypertension, Dm II, Thyroidectomy , Who presented to [facility] with fevers and chills and was diagnosed with influenza A. In addition she was found to have elevated LFTs with an AST of 115 ALT of 57 and a lipase of 102. Patient had a CT of the abdomen which showed "dilated common bile duct measuring 1.3 cm in size. Increased density within the midportion of the common bile duct measuring 2.00.9 cm in size which may be a gallstone or sludge ball". Patient was transferred here to our emergency room for further evaluation by GI metal bonding crib attendant who accepted the patient. She was brought in by her nephew. Chest x-ray report also reviewed from [facility] which showed interstitial prominence which may represent pneumonitis or CHF or edema. 04/28: Seen in her bedroom early in am, awaiting for ERCP, she came back to her bedroom status post ERCP, found Dilated common bile duct with multiple filling defects multiple stones were removed with significant amount of sludge, Cholangiogram negative for filing defect, recommended Nothing by mouth until tomorrow morning if doing okay may advance diet as tolerated. Liver function in am tomorrow. 04/29: Stable in her bedroom, followed by GI specialist, status post ERCP, advance diet to full liquids today, if tolerates mild at a heart healthy soft in am tomorrow and LFTs today, not yet cleared for discharge by GI. 04/30: Seen in her bedroom, stable tolerating diet, advanced by GI specialist not yet cleared for discharge, seen by MEDICAL SCIENTIFIC LIAISON but awaiting final by Specialist no nausea, vomit or diarrhea, no abdominal pain, stable liver enzymes and ALP, She wants to go home. Objective Vital Signs Date Time Temp Pulse Resp B/P (MAP) Pulse Ox O2 Delivery O2 Flow Rate FiO2 04/30/17 08:00 98.1 76 18 120/67 (84) 95 04/30/17 04:00 Room Air 04/30/17 03:42 68 04/30/17 00:00 Room Air 04/30/17 00:00 97.6 77 16 126/71 (89) 99 04/29/17 23:47 74 04/29/17 20:00 Room Air 04/29/17 20:00 97.6 80 18 117/61 (79) 96 04/29/17 19:52 79 1/27/18 16:57 97 21 04/29/17 16:00 70 04/29/17 16:00 97.4 75 18 123/65 (84) 96 04/29/17 12:02 63 04/29/17 12:00 97.3 68 18 124/61 (82) 100 I/O 04/29/17 04/29/17 04/29/17 04/30/17 04/30/17 04/30/17 07:00 15:00 23:00 07:00 15:00 23:00 Intake Total 1000 ml 240 ml 1240 ml Output Total 1200 ml 1000 ml Balance -200 ml 240 ml 240 ml Intake Oral 0 ml 240 ml 240 ml IV Total 1000 ml 1000 ml Output Urine Total 1200 ml 1000 ml # Voids 4 # Bowel Movements 0 0 Result Diagram: 04/30/17 0310 04/28/17 0555 Imaging Last Impressions GI Procedure 04/28/17 0000 Signed Impressions: Service Date/Time: Friday, April 28, 2017 12:37 - CONCLUSION: ERCP as above. Ramírez Garza MD Procedures ERCP 04/28 Other Results Laboratory Tests Test 04/28/17 05:55 04/30/17 03:10 Blood Urea Nitrogen 9 MG/DL Creatinine 0.58 MG/DL Random Glucose 61 MG/DL Total Protein 6.9 GM/DL 7.3 GM/DL Albumin 2.0 GM/DL 2.1 GM/DL Calcium Level 8.3 MG/DL Alkaline Phosphatase 490 U/L 434 U/L Aspartate Amino Transf (AST/SGOT) 61 U/L 43 U/L Alanine Aminotransferase (ALT/SGPT) 39 U/L 32 U/L Total Bilirubin 1.3 MG/DL 0.9 MG/DL Sodium Level 142 MEQ/L Potassium Level 3.4 MEQ/L Chloride Level 109 MEQ/L Carbon Dioxide Level 24.1 MEQ/L Anion Gap 9 MEQ/L Estimat Glomerular Filtration Rate 98 ML/MIN White Blood Count 7.7 TH/MM3 Red Blood Count 3.01 MIL/MM3 Hemoglobin 9.7 GM/DL Hematocrit 27.2 % Mean Corpuscular Volume 90.5 FL Mean Corpuscular Hemoglobin 32.2 PG Mean Corpuscular Hemoglobin Concent 35.6 % Red Cell Distribution Width 18.9 % Platelet Count 350 TH/MM3 Mean Platelet Volume 8.4 FL Neutrophils (%) (Auto) 61.3 % Lymphocytes (%) (Auto) 30.2 % Monocytes (%) (Auto) 5.3 % Eosinophils (%) (Auto) 2.3 % Basophils (%) (Auto) 0.9 % Neutrophils # (Auto) 4.7 TH/MM3 Lymphocytes # (Auto) 2.3 TH/MM3 Monocytes # (Auto) 0.4 TH/MM3 Eosinophils # (Auto) 0.2 TH/MM3 Basophils # (Auto) 0.1 TH/MM3 CBC Comment DIFF FINAL Differential Comment Direct Bilirubin 0.7 MG/DL Indirect Bilirubin 0.2 MG/DL Objective Remarks GENERAL: No acute distress. SKIN: No rashes, cool and dry HEAD: Atraumatic. Normocephalic. No temporal or scalp tenderness. EYES: Pupils equal round and reactive. Extraocular motions intact. ENT: Nose without drainage. Airway patent. NECK: Trachea midline. CARDIOVASCULAR: Regular rate and rhythm with very soft JUN RESPIRATORY: Clear to auscultation. Breath sounds equal bilaterally. No wheezes but faint crackles at base GASTROINTESTINAL: Abdomen soft, somewhat distended but non tender w no guarding or rebound, well healed mid line incision noted. no phipps's sign MUSCULOSKELETAL: Extremities without edema. No calf tenderness. Negative Homans sign bilaterally. NEUROLOGICAL: Awake and alert. Motor and sensory grossly within normal limits. Five out of 5 muscle strength in all muscle groups. Normal speech. Medications and IVs Current Medications Medications (Trade) Dose Ordered Sig/Son Route Start Time Stop Time Status Last Admin (NS Flush) 2 ml UNSCH PRN IV FLUSH 04/27/17 08:00 (NS Flush) 2 ml BID IV FLUSH 04/27/17 09:00 04/29/17 21:02 (Zofran Inj) 4 mg Q6H PRN IVP 04/27/17 08:00 (Narcan Inj) 0.4 mg UNSCH PRN IV PUSH 04/27/17 08:00 (Annette-Colace) 1 tab BID PO 04/27/17 09:00 04/29/17 21:02 (Milk Of Magnesia Liq) 30 ml Q12H PRN PO 04/27/17 08:00 (Senokot) 17.2 mg Q12H PRN PO 04/27/17 08:00 (Dulcolax Supp) 10 mg DAILY PRN RECTAL 04/27/17 08:00 (Lactulose Liq) 30 ml DAILY PRN PO 04/27/17 08:00 (Tamiflu) 75 mg BID PO 04/27/17 12:00 04/29/17 21:02 (Norvasc) 10 mg DAILY PO 04/28/17 09:00 04/29/17 09:21 (Aspirin Chew) 81 mg DAILY CHEW 04/28/17 09:00 04/29/17 09:21 (Synthroid) 75 mcg DAILY@0600 PO 04/28/17 06:00 04/30/17 05:22 (Vasotec Inj) 1.25 mg Q6H PRN IV PUSH 04/27/17 11:30 (Tylenol) 650 mg Q6HR PRN PO 04/27/17 11:30 (Duoneb Neb) 1 ampule Q6HR NEB PRN NEB 04/27/17 11:45 (Tessalon) 200 mg TID PRN PO 04/27/17 11:45 Dextrose/Sodium Chloride 1,000 ml @ 100 mls/hr Q10H IV 04/28/17 08:30 04/30/17 05:22 (NovoLOG SUPPLEMENTAL SCALE) 1 ACHS SLIDING SCALE SQ 04/28/17 17:00 04/29/17 21:03 (D50w (Vial) Inj) 50 ml UNSCH PRN IV PUSH 04/28/17 15:15 (Glucagon Inj) 1 mg UNSCH PRN OTHER 04/28/17 15:15 (Duoneb Neb) 1 ampule Q4HR NEB NEB 04/29/17 12:00 04/29/17 21:21 (Mucinex Er) 600 mg BID PO 04/29/17 11:15 04/29/17 21:03 A/P Assessment and Plan Mildly Elevated LFT's/Choledocholithiasis: GI accepted the transfer from [facility]. Status post ERCP multiple stones removed advance diet to full liquids today, if tolerates mild at a heart healthy soft in am tomorrow, and LFTs today, not yet cleared for discharge by GI. asymptomatic at this time. Mild leukocytosis: pt is influenza A positive. Will start her on Tamiflu as fevers started yesterday and pt's symptoms worsened which prompted her to go to [facility]. new CXR negative Leukocytosis Improved. only three dosages of Oseltamivir missing to complete management. asymptomatic patient. Mild anemia: Hemoglobin 10.6 hematocrit 30.7. Monitor HTN: controlled. DM: On hold metformin and continue sliding scale. developed hypoglycemia in am started on D5 Normal saline and following. Hypothyroidism: s/p thyroidectomy. resume Hormonal replacement. DVT proph: SCD. Pt may undergo procedure per GI, hold chemical DVT proph for now and resume post procedure. Code Status full Code. Discussed Condition With Patient and nurse Miss Hernandez Discharge Planning Once cleared by GI specialist. Jackson Griffin MD Apr 30, 2017 08:47
[2017-04-30] MEDS: SODIUM CHLORIDE 0.9% FLUSH 10 ML FLUSH IV FLUSH SCH (09:00)
[2017-04-30] MEDS: DOCUSATE SODIUM 50 MG/SENNA 8.6 MG TAB PO SCH (09:00)
[2017-04-30] MEDS: guaiFENesin E.R. 600 MG TAB PO SCH (09:15)
[2017-04-30] MEDS: OSELTAMIVIR PHOSPHATE 75 MG CAP PO SCH (09:15)
[2017-04-30] MEDS: ASPIRIN 81 MG CHEW TAB CHEW SCH (09:15)
[2017-04-30 12:00] VITALS: BP 101/54; PULSE 82; RESP 18; TEMP 97.7; O2SAT 95
[2017-04-30 12:05] VITALS: PULSE 85
--- NOTE | 2017-04-30 12:27 | HHI.GIFU ---
Subjective Remarks Resting in the bed sitting up Eating lunch denies any acute pain Patient is planning discharge today (Mary Zavala) Objective Vitals I&O Vital Signs Date Time Temp Pulse Resp B/P (MAP) Pulse Ox O2 Delivery O2 Flow Rate FiO2 04/30/17 12:00 97.7 82 18 101/54 (70) 95 04/30/17 08:00 98.1 76 18 120/67 (84) 95 04/30/17 08:00 77 04/30/17 07:15 Room Air 04/30/17 04:00 Room Air 04/30/17 03:42 68 04/30/17 00:00 Room Air 04/30/17 00:00 97.6 77 16 126/71 (89) 99 04/29/17 23:47 74 04/29/17 20:00 Room Air 04/29/17 20:00 97.6 80 18 117/61 (79) 96 04/29/17 19:52 79 04/29/17 16:57 97 21 04/29/17 16:00 70 04/29/17 16:00 97.4 75 18 123/65 (84) 96 I/O 04/29/17 04/29/17 04/29/17 04/30/17 04/30/17 04/30/17 07:00 15:00 23:00 07:00 15:00 23:00 Intake Total 1000 ml 240 ml 1240 ml Output Total 1200 ml 1000 ml Balance -200 ml 240 ml 240 ml Intake Oral 0 ml 240 ml 240 ml IV Total 1000 ml 1000 ml Output Urine Total 1200 ml 1000 ml # Voids 4 # Bowel Movements 0 0 Laboratory Laboratory Tests Test 04/30/17 03:10 White Blood Count 7.7 Red Blood Count 3.01 Hemoglobin 9.7 Hematocrit 27.2 Mean Corpuscular Volume 90.5 Mean Corpuscular Hemoglobin 32.2 Mean Corpuscular Hemoglobin Concent 35.6 Red Cell Distribution Width 18.9 Platelet Count 350 Mean Platelet Volume 8.4 Neutrophils (%) (Auto) 61.3 Lymphocytes (%) (Auto) 30.2 Monocytes (%) (Auto) 5.3 Eosinophils (%) (Auto) 2.3 Basophils (%) (Auto) 0.9 Neutrophils # (Auto) 4.7 Lymphocytes # (Auto) 2.3 Monocytes # (Auto) 0.4 Eosinophils # (Auto) 0.2 Basophils # (Auto) 0.1 CBC Comment DIFF FINAL Differential Comment Total Bilirubin 0.9 Direct Bilirubin 0.7 Indirect Bilirubin 0.2 Aspartate Amino Transf (AST/SGOT) 43 Alanine Aminotransferase (ALT/SGPT) 32 Alkaline Phosphatase 434 Total Protein 7.3 Albumin 2.1 Imaging Last Impressions GI Procedure 04/28/17 0000 Signed Impressions: Service Date/Time: Friday, April 28, 2017 12:37 - CONCLUSION: ERCP as above. Ramírez Garza MD Physical Exam HEENT: Pupils round and reactive to light; normocephalic; atraumatic; no jaundice. NECK: Neck is supple CHEST: Chest is clear out rhonchi CARDIAC: Regular rate and rhythm ABDOMEN: Soft, nondistended, nontender; no hepatosplenomegaly; bowel sounds are present in all four quadrants. EXTREMITIES: No edema. SKIN: Normal; no rash; no jaundice. CHASSIS ENGINEER: Comfortable (Mary Zavala) Assessment and Plan Plan ERCP 04/28/17 Dilated common bile duct with multiple filling defect Multiple stones were removed with significant amount of sludge End of case included cholangiogram was negative for any filling defect Anemia, hemoglobin stable PLAN: Plan on discharge today patient is stable denies any symptoms of nausea vomiting diarrhea or constipation Diet as tolerated Supportive care Bowel regimen with stool softeners and laxatives as needed This patient was seen by myself and Dr. Chew, done on behalf Dr. Chew (Mary Zavala) Plan Patient was seen and examined, agree with above-noted, liver function tests normalizing, no abdominal pain, patient can be discharged from GI, she will need colonoscopy as an outpatient with neon sign maker of choice (Mauricio Chew MD) Mary Zavala Apr 30, 2017 12:27 Mauricio Chew MD Apr 30, 2017 13:59
[2017-04-30] MEDS ORDERED: OSEL75 PO (14:50)
[2017-04-30] MEDS ORDERED: BENZ100 PO (14:50)
[2017-04-30] MEDS ORDERED: guaiFENesin ER PO (14:50)
--- NOTE | 2017-04-30 14:54 | HHI.DS ---
Discharge Summary Admission Date Apr 27, 2017 at 09:39 Discharge Date: Apr 30, 2017 Admitting Diagnosis choledocholithiasis,influenza (1) Choledocholithiasis ICD Code: K80.50 - Calculus of bile duct without cholangitis or cholecystitis without obstruction Diagnosis: Principal Status: Acute (2) Influenza ICD Code: J11.1 - Influenza due to unidentified influenza virus with other respiratory manifestations Diagnosis: Principal Status: Acute Procedures ERCP Brief History - From Admission Pt is a pleasant 87 yr old female w past medical history of asthma, hypertension, heart murmur, diabetes with a history of thyroidectomy although she doesn't know why she had it presented to [facility] with fevers and chills and was diagnosed with influenza A. In addition she was found to have elevated LFTs with an AST of 115 ALT of 57 and a lipase of 102. Patient had a CT of the abdomen which showed "dilated common bile duct measuring 1.3 cm in size. Increased density within the midportion of the common bile duct measuring 2.00.9 cm in size which may be a gallstone or sludge ball". Patient was transferred here to our emergency room for further evaluation by GI computer application developer who accepted the patient. Patient denies any abdominal pain, nausea or vomiting. She tells me, the reason she went to [facility] was because of her fevers and chills. She was brought in by her nephew. She denies any sick contacts however she has been around "people". She has been coughing for more than a week. She also complains of some body aches. However, her fevers started yesterday. Otherwise, patient has no other complaints. Chest x-ray report also reviewed from [facility] which showed interstitial prominence which may represent pneumonitis or CHF or edema. Patient denies any prior history of CHF. She denies any lower extremity edema. She denies any active shortness of breath. She tells me she has good bladder and bowel movement function. Last BM was 2 days ago. She does not feel constipated. CBC/BMP: 04/30/17 0310 04/28/17 0555 Significant Findings Laboratory Tests Test 04/28/17 05:55 04/30/17 03:10 Red Blood Count 2.99 MIL/MM3 (4.00-5.30) 3.01 MIL/MM3 (4.00-5.30) Hemoglobin 9.3 GM/DL (11.6-15.3) 9.7 GM/DL (11.6-15.3) Hematocrit 27.2 % (35.0-46.0) 27.2 % (35.0-46.0) Red Cell Distribution Width 18.3 % (11.6-17.2) 18.9 % (11.6-17.2) Monocytes (%) (Auto) 8.1 % (0.0-8.0) Random Glucose 61 MG/DL (74-106) Albumin 2.0 GM/DL (3.4-5.0) 2.1 GM/DL (3.4-5.0) Calcium Level 8.3 MG/DL (8.5-10.1) Alkaline Phosphatase 490 U/L (45-117) 434 U/L (45-117) Aspartate Amino Transf (AST/SGOT) 61 U/L (15-37) 43 U/L (15-37) Total Bilirubin 1.3 MG/DL (0.2-1.0) Potassium Level 3.4 MEQ/L (3.5-5.1) Chloride Level 109 MEQ/L (98-107) Direct Bilirubin 0.7 MG/DL (0.0-0.2) Imaging Last Impressions GI Procedure 04/28/17 0000 Signed Impressions: Service Date/Time: Friday, April 28, 2017 12:37 - CONCLUSION: ERCP as above. Ramírez Garza MD PE at Discharge GENERAL: No acute distress. SKIN: No rashes, cool and dry HEAD: Atraumatic. Normocephalic. No temporal or scalp tenderness. EYES: Pupils equal round and reactive. Extraocular motions intact. ENT: Nose without drainage. Airway patent. NECK: Trachea midline. CARDIOVASCULAR: Regular rate and rhythm with very soft JUN RESPIRATORY: Clear to auscultation. Breath sounds equal bilaterally. No wheezes but faint crackles at base GASTROINTESTINAL: Abdomen soft, somewhat distended but non tender w no guarding or rebound, well healed mid line incision noted. no phipps's sign MUSCULOSKELETAL: Extremities without edema. No calf tenderness. Negative Homans sign bilaterally. NEUROLOGICAL: Awake and alert. Motor and sensory grossly within normal limits. Five out of 5 muscle strength in all muscle groups. Normal speech. Hospital Course This is a pleasant 87 y/o Female with Asthma, Hypertension, Dm II, Thyroidectomy , Who presented to [facility] with fevers and chills and was diagnosed with influenza A. In addition she was found to have elevated LFTs with an AST of 115 ALT of 57 and a lipase of 102. Patient had a CT of the abdomen which showed "dilated common bile duct measuring 1.3 cm in size. Increased density within the midportion of the common bile duct measuring 2.00.9 cm in size which may be a gallstone or sludge ball". Patient was transferred here to our emergency room for further evaluation by GI computer application developer who accepted the patient. She was brought in by her nephew. Chest x-ray report also reviewed from [facility] which showed interstitial prominence which may represent pneumonitis or CHF or edema. 04/28: Seen in her bedroom early in am, awaiting for ERCP, she came back to her bedroom status post ERCP, found Dilated common bile duct with multiple filling defects multiple stones were removed with significant amount of sludge, Cholangiogram negative for filing defect, recommended Nothing by mouth until tomorrow morning if doing okay may advance diet as tolerated. Liver function in am tomorrow. 04/29: Stable in her bedroom, followed by GI specialist, status post ERCP, advance diet to full liquids today, if tolerates mild at a heart healthy soft in am tomorrow and LFTs today, not yet cleared for discharge by GI. 04/30: Seen in her bedroom, stable tolerating diet, advanced by GI specialist not yet cleared for discharge, seen by PIPE TESTING TECHNICIAN but awaiting final by Specialist no nausea, vomit or diarrhea, no abdominal pain, stable liver enzymes and ALP, She wants to go home. Assessment and Plan Mildly Elevated LFT's/Choledocholithiasis: GI accepted the transfer from [facility]. Status post ERCP multiple stones removed advance diet to full liquids today, if tolerates mild at a heart healthy soft in am tomorrow, and LFTs today, not yet cleared for discharge by GI. asymptomatic at this time. Mild leukocytosis: pt is influenza A positive. Will start her on Tamiflu as fevers started yesterday and pt's symptoms worsened which prompted her to go to [facility]. new CXR negative Leukocytosis Improved. only three dosages of Oseltamivir missing to complete management. asymptomatic patient. Mild anemia: Hemoglobin 10.6 hematocrit 30.7. Monitor HTN: controlled. DM: On hold metformin and continue sliding scale. Hypothyroidism: s/p thyroidectomy. resume Hormonal replacement. DVT proph: SCD. Pt may undergo procedure per GI, hold chemical DVT proph for now and resume post procedure. Code Status full Code. Discussed Condition With Patient and nurse Miss Hernandez Discharge Planning Once cleared by GI specialist. Pt Condition on Discharge: Good Discharge Disposition: Discharge Home Discharge Time: <= 30 minutes Discharge Instructions DIET: Follow Instructions for: Heart Healthy Diet, Diabetic Diet Activities you can perform: Regular-No Restrictions Jackson Griffin MD Apr 30, 2017 14:54
== END 2017-04-30 19:00 | disposition home or self-care (01) | DRG 194 ==
LOC: NEPC 06:43 → NEDA 09:39 → NEDH 14:39 → N04A 17:42
PROVIDERS: ADMIT Internal Medicine; ATTEND Internal Medicine
PROC: BF101ZZ Fluoroscopy of Bile Ducts using Low Osmolar Contrast (ICD-10-PCS; 2017-04-28)
PROC: 0FC98ZZ Extirpation of Matter from Common Bile Duct, Via Natural or Artificial Opening Endoscopic (ICD-10-PCS; principal; 2017-04-28 12:00)
DX: J10.1 Influenza due to other identified influenza virus with other respiratory manifestations (principal); K91.86 Retained cholelithiasis following cholecystectomy; E11.649 Type 2 diabetes mellitus with hypoglycemia without coma; D64.9 Anemia, unspecified; I10 Essential (primary) hypertension; J45.909 Unspecified asthma, uncomplicated; E89.0 Postprocedural hypothyroidism; Z79.84 Long term (current) use of oral hypoglycemic drugs
CPT/HCPCS: 71046; 74330; 80053; 80076; 82948; 85025; 94150; 94640; 94664; 99211; C1769; G0463; J1815; J7030; J7042